=== PATIENT | male | born 1995 | race Caucasian/White ===

== ENCOUNTER 2017-02-22 16:50 | Emergency (ER) | payer OTHER ==
--- NOTE | 2017-02-22 17:14 | PDOC ---
Rapid Medical Evaluation Time Seen by Provider: 02/22/17 17:03 Medical Evaluation: Allergies Allergy/AdvReac Type Severity Reaction Status Date / Time No Known Allergies Allergy Verified 11/26/15 00:44 02/22/17 17:07 I performed a brief in-person evaluation of this patient. The patient presents with a chief complaint of: left sided headache x 3 days. States took pre-workout medication 3 days ago and had headache since then. States feeling better but a little jittery Pertinent physical exam findings: NAD lungs: cta bilat heart: s1s2 neuro: EOMI, steady gait, no facial drooping , +sensation in distal limbs I have ordered the following: analgesia The patient will proceed to the Ed for further evaluation Discharge Disposition - Referrals Referrals: Fernanda Hernandez [Primary Care Provider] - - Patient Instructions - Post Discharge Activity
[2017-02-22 17:15] VITALS: BP 156/76; PULSE 102; TEMP 98.5; BMI 26.6
[2017-02-22] MEDS ORDERED: ACETAMINOPHEN 500 MG TABLET (FP) PO ONE (17:16)
[2017-02-22] MEDS ORDERED: ACETAMINOPHEN 500 MG TABLET (FP) ONE (17:55)
--- NOTE | 2017-02-22 18:04 | PDOC ---
History of Present Illness - General Chief Complaint: Headache Stated Complaint: HEADACHE Time Seen by Provider: 02/22/17 17:03 History Source: Patient Exam Limitations: No Limitations - History of Present Illness Initial Comments: 02/22/17 17:59 21 yr male no PMHX presents with left sided headache on and off for 3 days worse in the moring , relieved with tylenol. Pt denies fever or chills, states headache started after taking a pre-workout supplement. Pt has no headache now, states it is to the lft oriental orthodox area behind eye and radiates to nasal bridge. no neck pain . Timing/Duration: reports: waxing and waning Severity: Yes: mild Past History - Past Medical History Allergies/Adverse Reactions: Allergies Allergy/AdvReac Type Severity Reaction Status Date / Time No Known Allergies Allergy Verified 02/22/17 17:08 Home Medications: Ambulatory Orders Naproxen [Naprosyn -] 500 mg PO BID PRN #14 tablet 02/22/17 COPD: No Other medical history: DENIES. - Immunization History Immunization Up to Date: Yes - Suicide/Smoking/Psychosocial Hx Smoking History: Never smoked Have you smoked in the past 12 months: No Number of Cigarettes Smoked Daily: 2 Hx Alcohol Use: No Drug/Substance Use Hx: No Substance Use Type: None Neuro Specific PMHX - Complaint Specific PMHX Glaucoma: No Herniated Disk: No Laminectomy: No Migraine: No Multiple Sclerosis: No Neuropathy: No TIA: No Other Neuro History: family history of migraines Review of Systems - Review of Systems Able to Perform ROS?: Yes Constitutional: No: Symptoms Reported HEENTM: No: Symptoms Reported Respiratory: No: Symptoms reported Cardiac (ROS): No: Symptoms Reported ABD/GI: No: Symptoms Reported : No: Symptoms Reported Musculoskeletal: No: Symptoms Reported Integumentary: No: Symptoms Reported Neurological: Yes: Symptoms reported, Headache *Physical Exam - Vital Signs Last Vital Signs Temp Pulse Resp BP Pulse Ox 98.5 F 102 H 19 156/76 97 02/22/17 17:08 02/22/17 17:08 02/22/17 17:08 02/22/17 17:08 02/22/17 17:08 - Physical Exam General Appearance: Yes: Nourished, Appropriately Dressed HEENT: positive: EOMI, GIANA, Normal ENT Inspection, TMs Normal, Pharynx Normal Neck: positive: Supple. negative: Tender Respiratory/Chest: positive: Lungs Clear, Normal Breath Sounds. negative: Chest Tender Cardiovascular: positive: Regular Rhythm, Regular Rate Gastrointestinal/Abdominal: positive: Normal Bowel Sounds, Soft Musculoskeletal: positive: Normal Inspection Extremity: positive: Normal Capillary Refill, Normal Inspection, Normal Range of Motion Integumentary: positive: Normal Color, Dry, Warm Neurologic: positive: facilities and grounds director II-XII NML intact, Fully Oriented, Alert, Normal Mood/ Affect, Normal Response, Motor Strength /5 ED Treatment Course - RADIOLOGY Radiology Studies Ordered: Category Date Time Status HEAD CT WITHOUT CONTRAST [CT] Stat CT Scan 02/22/17 17:56 Ordered Medical Decision Making - Medical Decision Making 02/22/17 18:01 cc: headache left side on and off 3-4 days worse in am with nausea no headache now but his mother told him to come get evaluated. pt states he smokes marijuana 3-4 times a week and drinks ETOH 2x week states he is has cut down on marijuana recently will get head CT *DC/Admit/Observation/Transfer Diagnosis at time of Disposition: Headache Qualifiers: Headache type: tension-type Headache chronicity pattern: acute headache Intractability: not intractable Qualified Code(s): G44.209 - Tension-type headache, unspecified, not intractable - Discharge Dispostion Disposition: HOME Condition at time of disposition: Good - Prescriptions Prescriptions: Naproxen [Naprosyn -] 500 mg PO BID PRN #14 tablet PRN Reason: Headache - Referrals Referrals: Fernanda Hernandez [Primary Care Provider] - Jimenez Duggan MD [Staff Physician] - - Patient Instructions Additional Instructions: please follow with the neurologist Dr. Jeffrey if symptoms worsen or continue take naprosyn as directed for headache drink pleanty of water and avoid alcohol and marijuana return to ER for any worsening symptoms - Post Discharge Activity
== END 2017-02-22 18:36 | disposition home or self-care (01) ==
LOC: JERFT 16:50
DX: G44.209 Tension-type headache, unspecified, not intractable (principal)
CPT/HCPCS: 70450-TC; 99281-25

== ENCOUNTER 2018-08-25 11:19 | Emergency (ER) | payer OTHER | END 2018-08-25 12:19 | disposition home or self-care (01) | LOC: JERFT 11:19 ==